=== PATIENT | male | born 1985 | race Caucasian/White ===

== ENCOUNTER 2018-04-26 16:52 | Emergency (ER) | payer SELFPAY ==
[2018-04-26] MEDS: NORCO, ANEXSIA 5/325MG TABLET (HYDROcodone/ACETAMINOPHEN) PO (18:48)
== END 2018-04-26 19:35 | disposition home or self-care (01) ==
LOC: M ED 16:52
DX: S06.0X0A Concussion without loss of consciousness, initial encounter (principal); S63.501A Unspecified sprain of right wrist, initial encounter; W22.8XXA Striking against or struck by other objects, initial encounter; Y92.018 Other place in single-family (private) house as the place of occurrence of the external cause; J45.909 Unspecified asthma, uncomplicated; M46.90 Unspecified inflammatory spondylopathy, site unspecified; F17.210 Nicotine dependence, cigarettes, uncomplicated
CPT/HCPCS: 73110

== ENCOUNTER 2019-05-16 11:52 | Emergency (ER) | payer SELFPAY ==
[~2019-05-16] VITALS: Ht 157.5 cm; Wt 70.0 kg
[~2019-05-16 11:52] MED LIST: IBUP80TA PO; ZOFR4TAB14 PO
[2019-05-16] MEDS ORDERED: NALOXONE INJ 0.4 MG/1 ML VIAL (J2310) IV STA (12:58)
[2019-05-16] MEDS ORDERED: NS 1,000 ML IV ONE ×2 (13:00→15:30)
[2019-05-16 13:29] LABS: HEMATOCRIT 44.4 % (42.0-52.0); MEAN CORPUSCULAR HEMOGLOBIN 31.1 pg (27.0-33.0); MEAN CORPUSCULAR HGB CONC 33.8 g/dl (32.0-36.5); MEAN CORPUSCULAR VOLUME 91.9 fl (80.0-96.0); PLATELET COUNT, AUTOMATED 292 10^3/uL (150-450); RED BLOOD COUNT 4.83 10^6/uL (4.30-6.10); WHITE BLOOD COUNT 8.7 10^3/uL (4.0-10.0)
[2019-05-16 13:45] LABS: BILIRUBIN,DIRECT 0.1 MG/DL (0.0-0.2); BILIRUBIN,TOTAL 0.4 MG/DL (0.2-1.0); ETHYL ALCOHOL (ETHANOL) 0.358 % (0.000-0.010); TOTAL PROTEIN 6.9 GM/DL (6.4-8.2)
--- NOTE | 2019-05-16 14:07 | REP ---
HISTORY: Pain in the neck after potential trauma. Vertebral body height and alignment is within normal limits. The facet joints are well aligned bilaterally. The disc spaces are symmetric and well maintained. There is no abnormal paraspinal soft tissue swelling. IMPRESSION: No acute abnormality noted. Electronically Signed by Nils Chi DO 05/16/2019 04:20 P
--- NOTE | 2019-05-16 14:19 | REP ---
HISTORY: Possible head trauma. COMPARISON: 04/26/2018 Multiple scans were repeated secondary to marked motion artifact. No single scan includes all of the brain. Review of multiple scans and overlapping projections show no gross abnormalities and no evidence of acute intracranial pathology. Compared to 04/26/2018 there does not appear to be a significant change other than the technical factors. There is no gross skull fracture, however, once again, the skull was surveyed over multiple overlapping sections due to the extreme motion artifact and multiple repeat scans. OVERALL IMPRESSION: No gross abnormality or evidence of gross significant change compared to 04/26/2018. Consider post sedation repeat if clinically relevant. Electronically Signed by Nils Chi DO 05/16/2019 04:20 P
--- NOTE | 2019-05-16 15:01 | REP ---
CHEST, SINGLE VIEW: Single view of the chest is performed. There is elevation of the left hemidiaphragm with moderate distention of the stomach. There is mild left basilar atelectatic change. Right lung is clear. Heart and mediastinum are unremarkable. Electronically Signed by Avel Randall MD 05/16/2019 05:20 P
[2019-05-16 16:06] LABS: BARBITURATES URINE REFLEX NEGATIVE (NEGATIVE); BENZODIAZEPINES URINE REFLEX NEGATIVE (NEGATIVE); METHADONE URINE REFLEX NEGATIVE (NEGATIVE); OPIATES URINE REFLEX NEGATIVE (NEGATIVE); PHENCYCLIDINE URINE REFLEX NEGATIVE (NEGATIVE)
[2019-05-16 17:42] LABS: AMPHETAMINES URINE REFLEX PENDING CONFIRMATION (NEGATIVE)
[2019-05-16 17:43] LABS: CANNABINOIDS URINE REFLEX PENDING CONFIRMATION (NEGATIVE); COCAINE METABOLITE URINE REFLE PENDING CONFIRMATION (NEGATIVE)
[2019-05-16 22:22] VITALS: BP 109/72
[2019-05-24 09:06] LABS: Amphetamine Positive (.); Amphetamines Positive (.); Cannabinoid Positive (.); Cocaine Positive (.); GC Amphetamine 963 ng/mL (Cutoff=500); GC Benzoylecgon 2340 ng/mL (Cutoff=150); GC Carboxy THC 207 ng/mL (Cutoff=10); GC Methamphetam >4000 ng/mL (Cutoff=500); Methamphetamine Positive (.)
== END 2019-05-16 22:29 | disposition home or self-care (01) ==
LOC: M ED 11:52
DX: F10.120 Alcohol abuse with intoxication, uncomplicated (principal); G93.41 Metabolic encephalopathy; J45.909 Unspecified asthma, uncomplicated; M46.90 Unspecified inflammatory spondylopathy, site unspecified; F17.200 Nicotine dependence, unspecified, uncomplicated
CPT/HCPCS: 36600; 70450; 71045; 72125; 80047; 80076; 80307; 82803; 85027; 96374; 99285; G0480; J2310

== ENCOUNTER 2022-05-09 13:02 | Inpatient (IN) | payer MEDICAID ==
[~2022-05-09] VITALS: Ht 172.7 cm; Wt 75.0 kg
[2022-05-09 13:44] LABS: MEAN CORPUSCULAR HGB CONC 33.3 g/dl (32.0-36.5); MEAN CORPUSCULAR VOLUME 89.9 fl (80.0-96.0); PLATELET COUNT, AUTOMATED 315 10^3/uL (150-450); RED BLOOD COUNT 4.67 10^6/uL (4.30-6.10); WHITE BLOOD COUNT 9.6 10^3/uL (4.0-10.0)
[2022-05-09 14:28] LABS: ACETAMINOPHEN LEVEL < 2.0 UG/ML (10.0-30.0); ALBUMIN 3.8 GM/DL (3.2-5.2); ALT/SGPT 91 U/L (12-78); BILIRUBIN,DIRECT < 0.1 MG/DL (0.0-0.2); BILIRUBIN,TOTAL 0.3 MG/DL (0.2-1.0); BLOOD UREA NITROGEN 13 MG/DL (7-18); CALCIUM LEVEL 9.4 MG/DL (8.5-10.1); CARBON DIOXIDE LEVEL 26 MEQ/L (21-32); CHLORIDE LEVEL 110 MEQ/L (98-107); CREATININE FOR GFR 1.03 MG/DL (0.70-1.30); ETHYL ALCOHOL (ETHANOL) < 0.003 % (0.000-0.010); GLOMERULAR FILTRATION RATE > 60.0 (>60); GLUCOSE, FASTING 85 MG/DL (70-100); POTASSIUM SERUM 4.1 MEQ/L (3.5-5.1); SALICYLATE LEVEL 1.8 MG/DL (5.0-30.0); SODIUM LEVEL 142 MEQ/L (136-145); TOTAL PROTEIN 7.2 GM/DL (6.4-8.2)
[2022-05-09 14:32] LABS: RSV AMPLIFICATION NEGATIVE (NEGATIVE)
[2022-05-09] MEDS ORDERED: HOME MED LIST COMPLETE! XX SCH (14:55)
[2022-05-09 16:01] LABS: AMPHETAMINES LEVEL URINE POSITIVE (NEGATIVE); BARBITURATES URINE NEGATIVE (NEGATIVE); BENZODIAZEPINES URINE NEGATIVE (NEGATIVE); CANNABINOIDS URINE NEGATIVE (NEGATIVE); COCAINE METABOLITE URINE NEGATIVE (NEGATIVE); METHADONE URINE NEGATIVE (NEGATIVE); OPIATES URINE NEGATIVE (NEGATIVE); PHENCYCLIDINE URINE NEGATIVE (NEGATIVE)
[2022-05-10] MEDS ORDERED: diphenhydrAMINE 25MG CAP PO PRN (11:20)
[2022-05-10] MEDS ORDERED: ACETAMINOPHEN TAB 650MG DOSE (2X325MG) PO PRN (11:20)
[2022-05-10] MEDS ORDERED: OLANZapine ORAL DISINTEGRATING TAB 5MG PO PRN (11:20)
[2022-05-10] MEDS ORDERED: MOM 30ML SUSPENSION UDC PO PRN (11:20)
[2022-05-10] MEDS ORDERED: MAALOX 30 ML SUSP *UDC PO PRN (11:20)
[2022-05-10] MEDS ORDERED: traZODone 50 MG TAB PO PRN (11:20)
[2022-05-10] MEDS: NICOTINE 21MG/24HR 1 EA TRANSDERMAL TD SCH (13:57)
[2022-05-10 15:26] VITALS: BP 110/60
[2022-05-11 06:44] VITALS: BP 95/55
[2022-05-11] MEDS: NICOTINE 21MG/24HR 1 EA TRANSDERMAL TD SCH (09:40)
[2022-05-11] MEDS: VENLAFAXINE **XR** 37.5 MG CAPSULE PO SCH (11:40)
[2022-05-11 17:41] LABS: HEPATITIS B CORE ANTIBODY IGM NEGATIVE (NEGATIVE); HEPATITIS B SURFACE ANTIGEN NEGATIVE (NEGATIVE)
[2022-05-11 17:45] LABS: HEPATITIS C VIRUS ABY INDEX > 11.0 INDEX (<0.8)
[2022-05-11 18:00] VITALS: BP 134/72
[2022-05-12 07:03] VITALS: BP 116/73
[2022-05-12] MEDS: VENLAFAXINE **XR** 37.5 MG CAPSULE PO SCH (10:00)
[2022-05-12] MEDS: NICOTINE 21MG/24HR 1 EA TRANSDERMAL TD SCH (10:01)
[2022-05-12 18:45] VITALS: BP 113/76
[2022-05-13 06:18] VITALS: BP 112/74
[2022-05-13] MEDS: NICOTINE 21MG/24HR 1 EA TRANSDERMAL TD SCH (11:53)
[2022-05-13] MEDS: VENLAFAXINE **XR** 37.5 MG CAPSULE PO SCH (11:53)
[2022-05-13] MEDS ORDERED: NICO21PAT TD (12:50)
[2022-05-13] MEDS ORDERED: VENL37.598 PO (12:50)
== END 2022-05-13 14:12 | disposition home or self-care (01) | DRG 754 ==
LOC: M ED 13:02 → M ED INP 05-10 11:17 → M PSY 05-10 15:12
PROVIDERS: ADMIT Psychiatry & Neurology Psychiatry; ATTEND Student in an Organized Health Care Education/Training Program
DX: F43.21 Adjustment disorder with depressed mood (principal); R45.851 Suicidal ideations; F15.14 Other stimulant abuse with stimulant-induced mood disorder; F12.10 Cannabis abuse, uncomplicated; F60.2 Antisocial personality disorder; F17.200 Nicotine dependence, unspecified, uncomplicated; R74.01 Elevation of levels of liver transaminase levels; Z65.3 Problems related to other legal circumstances; Z63.0 Problems in relationship with spouse or partner; Z56.0 Unemployment, unspecified; Z59.00 Homelessness unspecified; Z76.5 Malingerer [conscious simulation]

== ENCOUNTER → 2024-11-26 | Outpatient (CLI) | payer MEDICAID ==
[~2024-11-26] MED LIST changes: +NICO21PAT TD; +VENL37.598 PO
== END ==
LOC: M SOG 08:01
PROVIDERS: ATTEND Physician Assistant
DX: M79.672 Pain in left foot (principal)

== ENCOUNTER → 2024-12-17 | Outpatient (CLI) | payer OTHER | LOC: M SOG 07:51 | PROVIDERS: ATTEND Physician Assistant | DX: M79.672 Pain in left foot (principal) ==

== ENCOUNTER 2025-09-26 09:10 | Emergency (ER) | payer OTHER, SELFPAY ==
[~2025-09-26] VITALS: Ht 167.6 cm; Wt 90.0 kg
[2025-09-26] MEDS ORDERED: HYDR-643 PO (09:22)
[2025-09-26] MEDS ORDERED: MIRT45TA68 PO (09:22)
[2025-09-26] MEDS: KETOROLAC 30 MG/ML 1 ML VIAL IV ONE (12:13)
[2025-09-26 12:18] LABS: BASO # 0.1 10^3/uL (0.0-0.2); BASO % 0.7 % (0.0-1.0); EOS # 0.1 10^3/uL (0.0-0.5); EOS % 1.0 % (0.0-3.0); LYMPH # 1.7 10^3/uL (1.5-5.0); LYMPH % 15.4 % (24.0-44.0); MONO # 0.9 10^3/uL (0.0-0.8); MONO % 8.0 % (2.0-8.0); NEUTROPHILS # 7.9 10^3/uL (1.5-8.5); NEUTROPHILS % 74.4 % (36.0-66.0); PLATELET COUNT, AUTOMATED 320 10^3/uL (150-450)
[2025-09-26 12:42] LABS: CK-MB VALUE MASS < 1.0 NG/ML (<3.6)
[2025-09-26 12:44] LABS: CALCIUM LEVEL 8.7 MG/DL (8.5-10.1); CARBON DIOXIDE LEVEL 28 MMOL/L (20-31); CHLORIDE LEVEL 104 MMOL/L (98-107); CREATININE FOR GFR 0.86 MG/DL (0.70-1.30); GLOMERULAR FILTRATION RATE > 90.0 (>60); POTASSIUM SERUM 4.6 MMOL/L (3.5-5.1); SODIUM LEVEL 140 MMOL/L (136-145)
[2025-09-26 12:46] LABS: CPK CREATINE PHOSPHOKINASE 88 U/L (46-171)
[2025-09-26] MEDS ORDERED: AZIT-12 PO (12:57)
[2025-09-26] MEDS ORDERED: BENZ200C70 PO (12:57)
[2025-09-26 13:00] VITALS: BP 116/66; TEMP 98; O2SAT 96
[2025-09-26 13:01] LABS: SOFIA COVID ANTIGEN NEGATIVE (NEGATIVE)
== END 2025-09-26 13:08 | disposition home or self-care (01) ==
LOC: M ED 09:10
DX: J20.9 Acute bronchitis, unspecified (principal); F17.200 Nicotine dependence, unspecified, uncomplicated
CPT/HCPCS: 71101; 80047; 80048; 82550; 82553; 84484; 85025; 87428; 93005; 96374; 99284; J1885